=== PATIENT | male | born 1980 | race African-American/Black ===

== ENCOUNTER 2017-10-21 12:46 | Emergency (ER) | payer OTHER ==
[~2017-10-21 12:46] MED LIST: SULF-154 PO; Z.0.NO CURRENT MEDS
[2017-10-21 12:49] VITALS: BP 118/65; PULSE 68; RESP 12; TEMP 98.7; O2SAT 96
[2017-10-21] MEDS ORDERED: BACT800T5 PO (13:56)
--- NOTE | 2017-10-21 13:59 | PD ---
HPI Chief Complaint: Injury Time Seen by Provider: 13:51 Travel History International Travel<30 days: No Contact w/Intl Traveler<30days: No Traveled to known affect area: No History of Present Illness HPI 37-year-old male presents from her department with a wound to the right palmar aspect of the wrist after installing a screen today. Patient states that a nail went to his wrist approximately 5-10 mm and he was able to remove it immediately afterwards. States that he is having constant, aching pain with flexion of his fingers and movement of his wrist however, patient denies numbness or tingling of the area. Patient was able to completely remove the nail after he was impaled. Patient does not know when his last tetanus shot was. PFSH Past Medical History Diminished Hearing: No Past Surgical History Appendectomy: Yes Social History Alcohol Use: No Tobacco Use: No Substance Use: No Allergies-Medications (Allergen,Severity, Reaction): Coded Allergies: No Known Allergies (Verified Adverse Reaction, Unknown, 10/21/17) Reported Meds & Prescriptions Reported Meds & Active Scripts Active Bactrim DS (Sulfamethoxazole-Trimethoprim) 800-160 Mg Tab 1 Tab PO BID Review of Systems Except as stated in HPI: all other systems reviewed are Neg Physical Exam Narrative GENERAL: Well-nourished, well-developed patient. SKIN: Focused skin assessment warm/dry. Right wrist- small puncture wound with surrounding erythema. No lymphangitic Spread. HEAD: Normocephalic. EYES: No scleral icterus. No injection or drainage. NECK: Supple, trachea midline. No JVD CARDIOVASCULAR: Regular rate and rhythm without murmurs, gallops, or rubs. RESPIRATORY: Breath sounds equal bilaterally. No accessory muscle use. MUSCULOSKELETAL: No cyanosis, or edema. Right hand and wrist-full range of motion, neurovascularly intact. BACK: Nontender without obvious deformity. No CVA tenderness. Data Data Last Documented VS Vital Signs Date Time Temp Pulse Resp B/P (MAP) Pulse Ox O2 Delivery O2 Flow Rate FiO2 10/21/17 14:43 10/21/17 12:49 98.7 68 12 96 Orders Orders Wrist, Complete ([id number]) (10/21/17 ) Tetanus/Diphtheria Tox Adult (Tetanus/Di (10/21/17 14:00) Ed Discharge Order (10/21/17 14:23) MDM Medical Decision Making Medical Screen Exam Complete: Yes Emergency Medical Condition: Yes Differential Diagnosis Puncture wound versus avulsion versus laceration Narrative Course 37-year-old male presents from her department with a wound to the right palmar aspect of the wrist after installing a screen today. Patient states that a nail went to his wrist approximately 5-10 mm and he was able to remove it immediately afterwards. States that he is having constant, aching pain with flexion of his fingers and movement of his wrist however, patient denies numbness or tingling of the area. Patient was able to completely remove the nail after he was impaled. Patient does not know when his last tetanus shot was. Vital signs stable Physical exam consistent with a puncture wound to the palmar aspect of middle of wrist Patient received tetanus vaccination. Bactrim antibiotic prophylaxis. X-ray of wrist- no obvious foreign bodies or bony involvement. Advised patient to monitor for signs of infection. Follow-up with primary care physician within 2-3 days. Return to the ED for worsening symptoms. Diagnosis Primary Impression: Puncture wound Referrals: [facility] Additional Instructions: Take medication as prescribed. Keep area clean and dry. If you developed increased swelling, pus, or pain return to the emergency department. Follow-up with her primary care physician within 2-3 days. Return to emergency department for worsening symptoms. Scripts Sulfamethoxazole-Trimethoprim (Bactrim DS) 800-160 Mg Tab 1 TAB PO BID for Infection, #14 TAB 0 Refills Prov: Ward Lindquist MD 10/21/17 Disposition: 01 DISCHARGE HOME Condition: Stable Saumya Carter Oct 21, 2017 13:59
[2017-10-21] MEDS ORDERED: TETANUS/DIPHTHERIA TOXOID ADULT 0.5 ML VIAL IM ONE (14:00)
--- NOTE | 2017-10-21 14:19 | RADRPT ---
EXAM DATE/TIME: 10/21/2017 13:45 [facility] COMPARISON: No previous studies available for comparison. INDICATIONS : Stuck nail in wrist yesterday. MEDICAL HISTORY : None. SURGICAL HISTORY : None. ENCOUNTER: Initial ACUITY: 1 day PAIN SCORE: 10/10 LOCATION: Right wrist FINDINGS: Soft tissue swelling at site of injury. Negative for radiopaque foreign body or fracture.. The join t spaces are maintained. Bony mineralization is normal. CONCLUSION: Soft tissue swelling otherwise negative. Godfrey Centeno MD FACR on October 21, 2017 at 14:17 Board Certified Radiologist. This report was verified electronically.
== END 2017-10-21 14:42 | disposition home or self-care (01) ==
LOC: NEPK 12:46
DX: S61.531A Puncture wound without foreign body of right wrist, initial encounter (principal); Z23 Encounter for immunization; W45.0XXA Nail entering through skin, initial encounter
CPT/HCPCS: 73110; 90714; 96372